=== PATIENT | female | born 1945 | race Caucasian/White ===

== ENCOUNTER 2018-09-06 09:21 | Outpatient (CLI) | payer OTHER | END 2018-09-06 09:36 | disposition home or self-care (01) | LOC: SONOGRAMA 09:21 | DX: E04.2 Nontoxic multinodular goiter (principal) ==

== ENCOUNTER 2021-05-10 08:46 | Outpatient (CLI) | payer OTHER | END 2021-05-10 08:50 | disposition home or self-care (01) | LOC: RAD 08:46 | DX: D50.8 Other iron deficiency anemias (principal); R19.4 Change in bowel habit; Z86.010 Personal history of colon polyps; K21.9 Gastro-esophageal reflux disease without esophagitis; K57.90 Diverticulosis of intestine, part unspecified, without perforation or abscess without bleeding ==

== ENCOUNTER 2024-02-15 08:51 | Outpatient (CLI) | payer OTHER | END 2024-02-15 08:55 | disposition home or self-care (01) | LOC: SONOGRAMA 08:51 | PROVIDERS: ATTEND Pathology Anatomic Pathology & Clinical Pathology | DX: D34 Benign neoplasm of thyroid gland (principal); E04.2 Nontoxic multinodular goiter ==